=== PATIENT | male | born 1995 | race Caucasian/White ===

== ENCOUNTER 2018-12-23 12:18 | Inpatient (IN) | payer OTHER, SELFPAY ==
[2018-12-23] VITALS (14 sets, daily range): BP systolic 99–150; BP diastolic 50–97; PULSE 68–97; RESP 9–17; TEMP 36.3–37.3; O2SAT 96–100; BMI 26.4; BMI 27.8
--- NOTE | 2018-12-23 | DI.RAD.S_ITS ---
PROCEDURE: XR ANKLE RT MIN 3V INDICATIONS: RIGHT DISTAL TIBIA FRACTURE FIXATION TECHNIQUE: Fluoroscopic images were obtained during an operative procedure and submitted for interpretation following the completion of the procedure. COMPARISON: [facility], , XR ANKLE RT 2V, 12/23/2018, 12:32. FINDINGS: These fluoroscopic images were performed for intraoperative localization. On these images, subluxation is seen in the distal tibia, with improved anatomic alignment. Please correlate with intraoperative findings. IMPRESSION: Normal intraoperative examination. Dictated by: Isaac Villanueva M.D. on 12/23/2018 at 16:36 Approved by: Isaac Villanueva M.D. on 12/23/2018 at 16:37
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
--- NOTE | 2018-12-23 12:48 | DI.RAD.S_ITS ---
PROCEDURE: XR KNEE RT 1TO2V INDICATIONS: joint above ankle injury TECHNIQUE: 2 views of the knee were acquired. COMPARISON: [facility], CR, XR ANKLE RT 2V, 12/23/2018, 12:32. FINDINGS: Bones: There is a mildly to moderately displaced fracture seen involving the proximal fibula. Suboptimal positioning limits evaluation of the proximal tibia and the distal femur. Soft tissues: No joint effusion. No suspicious soft tissue calcifications. IMPRESSION: Mild to moderate displacement of a proximal fibular fracture. Dictated by: Isaac Villanueva M.D. on 12/23/2018 at 12:22 Approved by: Isaac Villanueva M.D. on 12/23/2018 at 12:23
[2018-12-23] MEDS: MORPHINE 4 MG/ML INJ IM (12:56)
--- NOTE | 2018-12-23 13:18 | PC.NURSE ---
pt has abrasion to right posterior forarm, extending from elbow to wrist. area washed with soap and water, bacitracin applied, non adherent pad, gwen and netting to arm.
--- NOTE | 2018-12-23 13:37 | DI.RAD.S_ITS ---
PROCEDURE: XR KNEE RT 1TO2V INDICATIONS: fib fx TECHNIQUE: 2 views of the knee were acquired. COMPARISON: [facility], CR, XR ANKLE RT 2V, 12/23/2018, 12:32. [facility], CR, XR KNEE RT 1TO2V, 12/23/2018, 13:04. FINDINGS: Bones: There is a comminuted, mildly to moderately displaced fracture of the proximal fibula. No fractures of the distal femur or the proximal tibia can be seen. Soft tissues: Mild soft tissue swelling is seen. No significant joint effusion is seen. No significant soft tissue calcification can be seen. IMPRESSION: Comminuted, mildly to moderately displaced fracture of proximal fibular shaft. Dictated by: Isaac Villanueva M.D. on 12/23/2018 at 13:03 Approved by: Isaac Villanueva M.D. on 12/23/2018 at 13:04
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
[2018-12-23] MEDS: LACTATED RINGERS 1,000 ML 42 ML IV (14:52)
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
--- NOTE | 2018-12-23 15:29 | PM.PREOP ---
Pre-operative Note Interval Note History & Physical reviewed/Exam performed by Physician: Yes Changes to H&P: No
[2018-12-23] MEDS: CEFAZOLIN 2 GM/100 ML FROZ.PIGGY IV (15:50)
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
--- NOTE | 2018-12-23 16:25 | SUR.OPER ---
Supine on padded OR bed, head on pillow, arms secured on padded arm boards at <90 degrees abduction, legs uncrossed, left leg secured to table with tape over blanket, Right leg controlled by surgeon,safety belt at abdomen, gel bump under right hip.
--- NOTE | 2018-12-23 16:31 | SUR.OPER ---
Large C-Arm used for case.
--- NOTE | 2018-12-23 17:09 | SUR.OPER ---
Patient's torso and genitalia covered with lead apron during procedure for c-arm protection.
[2018-12-23] MEDS: BUPIVACAINE 0.5% W/ EPI (PF) VIAL 30 ML INJ (17:11)
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
--- NOTE | 2018-12-23 17:37 | SUR.PHASEI ---
Stable w/oral airway. Resp even and regular, skin warm and dry. Ice/elevation to RLE.
--- NOTE | 2018-12-23 17:45 | SUR.PHASEI ---
[address] Santos;responsive to voice, Denies pain/nausea; returned to sleep. Report called to floor. Circulating Rn left w/friend stating that he is staying overnight. Clothing, boots, gold colored yellow necklace, wallet, and cell phone to vloor with patient.
--- NOTE | 2018-12-23 17:47 | SUR.PHASEI ---
Positive motioin/sensation in right toes. refill <2sec.
--- NOTE | 2018-12-23 18:01 | SUR.PHASEI ---
1749 To room, bed down and locked, call light within reach, clothes and boots to closet, valuables to jake - discussed them with the nurse; patient chooses to keep wallet, phone and necklace with him. Awake/oriented, no pain/nausea, pleasant and appreciative. Resp unlabored, skin warm and dry. Stable.
[2018-12-23] MEDS: CEFAZOLIN 1 GM/50 ML FROZ.PIGGY IV (19:28)
--- NOTE | 2018-12-23 20:29 | PC.NURSE ---
Addendum entered by Adore Caro R.N. 12/23/18 23:17: Pt transfered to room 220, @ 2200. Addendum entered by Adore Caro R.N. 12/23/18 23:08: Up to BRP with 1PA FWW for non wt bearing and voiding 700 clear drk yellow urine. provided with snacks. Has friend that will pick pt up tomorrow, anytime available. Original Note: 1800- Pt arrived to room 212 from pACU via bed. A/O x3, ORIF to right tib/fib, splint/ifrah wrap, CDI, elevated. Cap refill <2 sec, reports still numb, able to wiggle toes. 98-100%RA, lS clear, denies SOB. BT+ denies nausea, reports hungry, provided with dinner and water. Pt denies pain at this time, reports extremely high pain tolerance, and would like to take a nap. Call his parents, mother is a physician in [place]. VSS. Left hand LR @ 42 and ABO. Pt reports will be going home tomorrow. Bed alarm on for safety, call light in reach.
[2018-12-23] MEDS: ACETAMINOPHEN 325 MG TABLET 975 MG PO (21:21)
[2018-12-24 00:07] VITALS: BP 117/54; PULSE 93; RESP 16; TEMP 36.8; O2SAT 96
[2018-12-24] MEDS: CEFAZOLIN 1 GM/50 ML FROZ.PIGGY IV (03:24)
[2018-12-24 05:10] LABS: Hematocrit 43.3 % (41-53); Hemoglobin 15.2 g/dL (13.5-17.5); Mean Corpuscular Hemoglobin 30.1 PG (26-34); Platelet Count 271 X10^3/uL (150-400); Red Blood Cell Count 5.03 X10^6/uL (4.5-5.9); Red Cell Distribution Width 12.9 % (11.6-14.8); White Blood Cell Count 12.7 X10^3/uL (4.5-11.0)
[2018-12-24 05:34] VITALS: BP 140/54; PULSE 73; RESP 16; TEMP 36.6; O2SAT 98
[2018-12-24 07:25] VITALS: BP 126/52; PULSE 85; RESP 16; TEMP 36.9; O2SAT 96
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
--- NOTE | 2018-12-24 08:32 | CM.DANOTE ---
Addendum entered by Noa Silva LPN 12/24/18 12:16: Pt has been cleared for home, d/c order is in place. Pt has just left for home with his friend, who will assist and drive him prn, in pvt vehicle. Addendum entered by Noa iSlva LPN 12/24/18 10:00: Case discussed in Team Rounds. OT reports that pt has worked this morning with [facility] and he will be fine for home setting with crutches. He does not need OT. UR RN Chencho noted that the ortho PA Isela's progress note of this morning stated that pt d/c would be per medicine. Have spoken now by phone with Isela to alert her to the admission of pt directly to orthopedic team. She stated she would follow up on pt's d/c later today.. RN coordinator Felix is updated. Original Note: Discharge Planning/Care Management DCP: assessment: case received, EMR reviewed and met with pt. Introduced self and role. Pt is a 23 year old male who admitted to care of orthopedic surgeon Dr. Whitley. Payer: Ade Nielson Pt is employed by [employer]. Pt admitted after a twist and fracture of R LE and was taken to surgery by Dr. Whitley last night for a ORIF repair. He will be NWB with a casted/splint in place and with plan for a [employer] Walking boot in 6 weeks. Pt is ordered and will see him for first time today. Will see if OT is indicated. Pt does live alone. He states his fiance Helen Baltazar [phone] is stationed in [place]. Pt says he does not have anyone specific to help him out after d/c but I feel confident I can handle whatever I need to as I recover. Agreed to follow prn as POC unfolds. CM Discharge Assessment Start: 12/24/18 08:30 Freq: Status: Active Protocol: Document 12/24/18 08:31 ITV (Rec: 12/24/18 08:32 ITV [id number]) Discharge Planning Assessment Advance Directives? No History Provided By Patient Medical Record Whiteboard Updated in Patient Room with Yes name and ext. # of Service Station Attendant Review Status In Process Next Review Type Continued Stay Review
--- NOTE | 2018-12-24 08:45 | PT.IIE ---
Surgery Performed Operation Date: 12/23/18 15:30 Actual Procedures p ORIF Ankle Fracture(Right) - Toni Whitley MD Physical Therapy Inpatient Evaluation/Re-Eval M1 PT/OT-IP Prior Functional Status Start: 12/24/18 10:47 Freq: NEEDED Status: Discharge Protocol: Document 12/24/18 08:45 AB (Rec: 12/24/18 12:00 AB [id number]) Medical Review Prior Functional Status Medical History Reviewed Yes Communication able to make needs known Mobility and Gait pt stated that he is independent with all mobilities and ambulation without AD Social History Household Members none Living Arrangements Apartment/Condo Number of Floors (Floors) One Floor Number of Stairs To Enter/Railing? 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 M2 PT-IP Current Condition Start: 12/24/18 10:47 Freq: NEEDED Status: Discharge Protocol: Document 12/24/18 08:45 AB (Rec: 12/24/18 12:00 AB [id number]) Physical Therapy Current Condition Current Condition Evaluation Date 12/24/18 Treatment Diagnosis R tib/fib tx s/p ORIF; difficulty in walking Onset Date 12/23/18 Precautions Brace RLE on short leg brandi Weight Bearing Status Weight Bearing Status Non-Weight Bearing Allowed Weight Bearing Amount (enter % RLE NWB or #) (%) M3 PT-IP Subjective Start: 12/24/18 10:47 Freq: NEEDED Status: Discharge Protocol: Document 12/24/18 08:45 AB (Rec: 12/24/18 12:00 AB [id number]) Subjective Physical Therapy Visit Type Type Initial Evaluation Visit Start Time 08:45 Visit Stop Time 09:25 Total Visit Minutes 40 Number of MEAT GRINDER Visits 0 Physical Therapy Visit Comments Patient Comments Pt agreeable to do PT Therapy Pain Assessment Pain When Pain Assessed At Rest Pain Present Pain Present Pain Reported Location Right Ankle Intensity 2 Scale Used Numeric (1 - 10) Pain Management Techniques Re-positioning Timing of Activity with Medications M4 PT-IP Mobility and Gait Start: 12/24/18 10:47 Freq: NEEDED Status: Discharge Protocol: Document 12/24/18 08:45 AB (Rec: 12/24/18 12:00 [id number]) PT-Bed Mobility Assessment Supine to Sit Supine to Sit Standby Assistance Sit to Supine Sit to Supine Standby Assistance Scooting Scooting to Edge of Bed Standby Assistance Scooting Up and Down in Bed Standby Assistance PT-Transfer Assessment Sit to and From Stand Sit to and from Stand Standby Assistance Equipment Transfer Assistive Device Gait Belt Axillary Crutches Orthotic/Prosthetic Devices or Brace: Yes Gait Assessment Gait Gait Assistance Required: Standby Assistance Distance (Feet) 200 Able to Maintain Weight Bearing Status Yes During Gait Assistive Devices Assistive Device Gait Belt Axillary Crutches Orthotic/Prosthetic Devices or Brace: Yes Factors Limiting Gait Function Factors Limiting Gait Function Decreased Activity Tolerance Decreased Strength Limited Range of Motion Pain Poor Balance Comments Gait Comments pt ambulated in room using bilateral crutches and ambulated in the hallway towards the stairs ~ 200 ft and back to his room SBA and cues for safetly Stair Climbing Assessment Evaluation Level of Assist On Stairs Contact Guard Assistance Devices Stair Climbing Assistive Devices Axillary Crutches Left Railing Technique/Endurance Stair Climbing Direction Ascend and Descend Stair Climbing Technique Step to Step Number of Steps Climbed 3 Query Text: Stair Climbing Set # Repetitions (reps) 1 PT-Balance Assessment Sitting Balance and Reactions Static Sitting Balance Ability Good Dynamic Sitting Balance Ability Good Standing Balance and Reactions Static Standing Balance Ability Fair Dynamic Standing Balance Ability Fair Device Used crutches M5 PT-IP Objective Assessments Start: 12/24/18 10:47 Freq: NEEDED Status: Discharge Protocol: Document 12/24/18 08:45 AB (Rec: 12/24/18 12:00 [id number]) Orientation Orientation/Cognition Level of Alertness Alert Orientation Name Age Birthday Month Date Year Day of Week Place Situation Language Function Ability No Deficits Noted Safety Awareness Understands Safety Issues Memory Description No Deficits Noted Gross Range of Motion Lower Extremity ROM Assessment Within Functional Limits Impairments R lower leg on a soft cast Strength Lower Extremity Strength Assessment Right Impaired Knee 4-/5 Coordination Assessment Gross Coordination Gross Coordination WNL Sensation Assessment Sensation Gross Sensation Right LE Impaired Sensation Description Numbness Muscle Tone Muscle Tone WNL Yes M6 PT-IP Treatment Start: 12/24/18 10:47 Freq: NEEDED Status: Discharge Protocol: Document 12/24/18 08:45 AB (Rec: 12/24/18 12:00 AB [id number]) Physical Therapy Treatment Education Education Provided Precautions Weight Bearing Status Safety Equipment Issued Equipment Type and Company bilateral axillary crutches: [employer] M7 PT-IP Assessment and Plan Start: 12/24/18 10:47 Freq: NEEDED Status: Discharge Protocol: Document 12/24/18 08:45 AB (Rec: 12/24/18 12:00 AB [id number]) PT Summary Assessment and Plan Potential Rehabilitation Potential Good Status of Condition at Evaluation Stable Summary Impairments Pain ROM Strength Balance Sensation Bed Mobility Transfers Gait Activity Tolerance Assessment Summary pt requiring SBA with mobility . able to ambulate using bilateral crutches. stated that his friend can assist him and drive him around if needed. pt stated that he had previous knee injuries and had used crutches before. dispensed bilateral crutches to pt for home use. Goals Bed Mobility Goal Independent Transfer Goal Independent Gait Goal Independent Gait Distance 250 Other Goals up/down 3 steps crutches SBA Days to Meet Goals 3 Frequency of Treatment Frequency Of Treatment Twice a Day Treatment Plan Physical Therapy Treatment Plan Bed Mobility Training Transfer Training Gait Training Therapeutic Exercise Balance Retraining Post Op Education Discharge Planning Hot or Cold Pack Neuromuscular Re-ed Coordination Retraining Manual Therapy Recommendations To Nursing Amount of Assist Needed Standby Assistance Discharge Recommendations PT Discharge Recommendations Home with Assistance Equipment Needed for Home Before crutches Discharge
[2018-12-24] MEDS: ACETAMINOPHEN 325 MG TABLET 975 MG PO (08:54)
== END 2018-12-24 11:48 | disposition home or self-care (01) | DRG 494 ==
LOC: ED 15:03 → AC 12-24 07:28
PROVIDERS: Admitting Provider Orthopaedic Surgery; Emergency Provider Nurse Practitioner Family; Visit Provider Orthopaedic Surgery
PROC: 0SSF04Z Reposition Right Ankle Joint with Internal Fixation Device, Open Approach (ICD-10-PCS; principal; 2018-12-23 15:30)
DX: S82.391A Other fracture of lower end of right tibia, initial encounter for closed fracture (principal); S82.831A Other fracture of upper and lower end of right fibula, initial encounter for closed fracture; V28.0XXA Motorcycle driver injured in noncollision transport accident in nontraffic accident, initial encounter
CPT/HCPCS: 36415; 73560; 73600; 73610; 76000; 85027; 94760; 97116; 97161; 99283; J0690; J1100; J1170; J2250; J2270; J2405; J2704; J3010